=== PATIENT | female | born 1955 | race Caucasian/White ===

== ENCOUNTER → 2017-02-18 | Outpatient (CLI) | payer MEDICAID, OTHER ==
--- NOTE | 2017-02-18 13:08 | KCIC ---
MRI of the lumbar spine without contrast 02/18/2017 CLINICAL HISTORY: Low back pain with bilateral leg numbness for years. TECHNIQUE: Unenhanced T1-weighted, T2-weighted and inversion recovery sagittal and T1-weighted and T2-weighted axial images of the lumbar spine were obtained. FINDINGS: Minimal S-shaped curvature of the thoracolumbar spine is seen. Degenerative signal changes are seen involving all of the disks of the lumbar spine. Degenerative signal changes are seen within the marrow surrounding these discs. The conus medullaris is normal in morphology, position, and signal characteristics. At the L1-2, L2-3 and L3-4 disc spaces there are mild generalized disc bulges. Degenerative changes are seen involving the facet joints bilaterally. There is mild to moderate ligamentum flavum hypertrophy bilaterally. These findings do not result in significant central spinal canal or neural foraminal stenosis. At the L4-5 disc space there is a mild to moderate generalized disc bulge. Degenerative changes are seen involving the facet joints, left greater than right. There is moderate ligamentum flavum hypertrophy bilaterally. These findings when combined result in mild left greater than right central spinal canal stenosis. Mild to moderate left greater than right neural foraminal stenosis is seen. At the L5-S1 disc space there is minimal generalized disc bulge. Degenerative changes are seen involving the facet joints bilaterally. These findings do not result in significant central spinal canal or neural foraminal stenosis. IMPRESSION: The changes of degenerative disc disease are seen involving the lumbar spine. These findings result in mild left greater the right central spinal canal stenosis with mild to moderate left greater than right neural foraminal stenosis at L4-5. Electronically signed by: Curly Dill MD (02/18/2017 1:05 PM)
== END | disposition home or self-care (01) ==
LOC: KCIC MRI 10:21
PROVIDERS: ATTEND Family Medicine
DX: M51.16 Intervertebral disc disorders with radiculopathy, lumbar region (principal); M48.06 Spinal stenosis, lumbar region; R20.0 Anesthesia of skin
CPT/HCPCS: 72148